=== PATIENT | male | born 1985 | race Two or more races ===

== ENCOUNTER 2021-03-11 10:14 | Outpatient (CLI) | payer OTHER | END 2021-03-11 10:19 | disposition home or self-care (01) | LOC: RX STUDY 10:14 | DX: K31.2 Hourglass stricture and stenosis of stomach (principal); T88.8XXS Other specified complications of surgical and medical care, not elsewhere classified, sequela ==

== ENCOUNTER 2021-04-09 14:30 | Outpatient (CLI) | payer OTHER | END 2021-04-09 14:50 | disposition home or self-care (01) | LOC: PPH VACUNA 14:30 | PROVIDERS: ATTEND Emergency Medicine Pediatric Emergency Medicine | DX: Z23 Encounter for immunization (principal) ==

== ENCOUNTER 2021-05-01 09:00 | Outpatient (CLI) | payer OTHER | END 2021-05-01 09:15 | disposition home or self-care (01) | LOC: PPH VACUNA 09:00 | PROVIDERS: ATTEND Emergency Medicine Pediatric Emergency Medicine | DX: Z23 Encounter for immunization (principal) ==